=== PATIENT | female | born 1965 | race Two or more races ===

== ENCOUNTER → 2021-10-20 | Outpatient (CLI) | payer OTHER ==
--- NOTE | 2021-10-20 15:43 | RAD ---
BILATERAL SCREENING MAMMOGRAM History: Routine screening. Comparison: None. Technique: Routine 2D and 3D tomosynthesis digital mammogram views were obtained bilaterally. Interpr etation was assisted with the use of computer-aided detection. Findings: Breast Tissue Density C : The breasts are heterogeneously dense, which may obscure small masses. There are no dominant masses, suspicious microcalcifications, or architectural distortion. IMPRESSION: No mammographic evidence of malignancy. Recommend routine screening mammography in one year. BI-RADS category 1: Negative. Patient information is entered into the reminder system with a target due date for the next screening mammogram. "Our facility is accredited by the [employer] Mammography [employer]." Electronically signed by: SHERMAN CASTANO MD (10/20/2021 3:41 PM) [id number]
== END ==
LOC: MAMMO 14:35
PROVIDERS: ATTEND Family Medicine
DX: Z12.31 Encounter for screening mammogram for malignant neoplasm of breast (principal)
CPT/HCPCS: 77063; 77067